=== PATIENT | female | born 1975 | race Hispanic/Latino ===

== ENCOUNTER 2016-09-23 15:58 | Emergency (ER) | payer OTHER ==
[2016-09-23] MEDS ORDERED: SODIUM CHLORIDE 0.9% 1,000 ML ONE ×2 (18:27→19:10)
[2016-09-23] MEDS ORDERED: Meclizine HCl 25 MG TAB ONE (20:48)
== END 2016-09-23 21:25 | disposition home or self-care (01) ==
LOC: ER 15:58
DX: R55 Syncope and collapse (principal)
CPT/HCPCS: 36415; 70450; 80053; 81001; 84703; 85025; 96360; 96361